=== PATIENT | female | born 1990 | race Caucasian/White ===

== ENCOUNTER 2022-02-08 11:14 | Outpatient (CLI) | payer OTHER, SELFPAY ==
[2022-02-08 12:21] LABS: Strep A DNA Probe* Not Detected (Not Detectd)
== END 2022-02-08 11:15 | disposition home or self-care (01) ==
LOC: NFLDUCREF 11:15
PROVIDERS: Visit Provider Student in an Organized Health Care Education/Training Program
DX: J02.9 Acute pharyngitis, unspecified (principal); Z20.822 Contact with and (suspected) exposure to COVID-19
CPT/HCPCS: 87651

== ENCOUNTER 2022-06-24 11:05 | Outpatient (CLI) | payer OTHER, SELFPAY ==
--- NOTE | 2022-06-24 14:58 | P.LACCB_ITS ---
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 Urban Jaundice: No Reason for Consult Reason for Consult: continued pain with latching after frenotomy Past Experience Past Experience: Yes (nursed her older child about 6 months) Current Frequency of Day Feedings: about every 2 hours Frequency of Night Feedings: every 2.5 - 3 hours Both Breasts: No Suck: strong Latch: wide Length of Time: 10 - 15 minutes Goals: as long as possible Pumping Pumping: Yes (BID) Quantity Pumped: 6 - 15 oz total each time Supplementing EMB Supplement: Yes (baby takes one 3 oz bottle daily ) Formula Supplement: No Baby Elimination Number of Wet Diapers a Day: 6 - 8 times/day Number of BM a Day: 2 - 4 times/day Breast/Nipple Condition Breast Information: WNL Maternal Nipple Condition - Left: Common Nipple Maternal Nipple Condition - Right: Common Nipple Sore Nipples: Yes Onsite Pre-Feed weight: 4.226 kg Post-Feed weight: 4.304 kg Milk Transferred (mL): 78 Assessments/Interventions Assessments/Interventions: Met with mom and this now one month old ex- term AGA baby for consult.? Mom reports baby had a lingual frenectomy on 06/16 and while has improved somewhat, it still hurts in the first 1 - 2 minutes and baby still slips off the breast throughout the feeding; her nipples are very sore.? She states baby is nursing every 2 - 3 hours around the clock.? She usually offers one side and he will nurse for 10 - 15 minutes.? She pumps BID getting 6 - 15 oz total each time.? Baby gets about one 3 oz bottle daily and mom states even with paced feeding he tends to have trouble with the bottle.? Breasts WNL- symmetrical with rounded lower quadrants, intramammary distance is < 1.5 inches.? Nipples are everted and don't flatten or retract on compression. No damage noted but mom does report they were damaged and bleeding before the frenectomy.? Nipples are quite red but are not shiny, scaly, or itchy.? She denies the pain is burning, stabbing, or that it radiates to her back.? Also denies any s/s of vasospasm. Baby has gained 37 grams/day since his last visit on 06/10.? Mom denies any caput/cephalohematoma; states baby does prefer turning his head to the left but has equal ROM when moving his extremities.? Baby has had several appointments with a craniosacral therapist in [place].? Palate is a little high and mom reports this is something the therapist is addressing.? Upper lip is easy to flange and the gums don't chato, but baby does have a suck blister and the dentist told mom baby has an upper lip tie (mom chose not to have this revised).? Baby has a strong suck on a finger and his tongue easily extends past the gum line, but doesn't really cup around the finger.? Good lateral movement with only minimal canoeing.? The release appears to be healing well and mom is d oing the exercises prescribed by the dentist.? No s/s of sheron in baby's mouth. Mom latched baby in the cross cradle position on the left side and immediately reported a painful pinching feeing even though the latch was wide and both lips were flanged.? No improvement when the flipple was suggested to help breast tissue fill in the higher palate.? Baby nursed about 15 minutes on the left side slipping from a deep latch to a shallow one almost constantly.? Mom doesn't have a fast/overwhelming flow, no improvement with breast compression or when mom attempted to support her breast during the feeding.? Mom switched baby to the right side and although he was able to maintain a deep latch a little better on this side, he still slipped down to the nipple frequently and mom had to re- latch him multiple times.? Both nipples were pinched looking when baby came off.? After about a 30 minute session he transferred 78 ml.? He was still fussy so mom gave him about 30 ml of EBM while we watched a video on different tongue exercises she could try at home. Plan: 1. Continue to nurse baby LITO, suggested she offer both sides at each feeding.? She has great technique in latching him, could try breast compression. 2. Continue to pump BID. 3. Continue to supplement prn. 4. Reviewed video from [place] on exercises to strengthen and coordinate the tongue.? Suggested she try these twice/day along with the one exercise from the dentist. 5. Will f/u on 07/01 by phone.? If no improvement could consult NILO Talavera for second opinion or have the upper lip tie revised. 6. Will fax note to Iona Lowe CNM at [facility]. Meds Home Medications and Allergies Home Medications Medication Instructions Recorded Confirmed Type guaifenesin 600 mg tablet, 600 mg PO Q12H PRN 02/08/22 03/02/22 History extended release 12 hr (Mucinex) Allergies Allergy/AdvReac Type Severity Reaction Status Date / Time azithromycin Allergy Intermediate hives Verified 03/02/22 15:37 augmentin Allergy Intermediate Hives Uncoded 03/02/22 15:37
== END 2022-06-24 11:06 | disposition home or self-care (01) ==
PROVIDERS: PCP Nurse Practitioner Family; Visit Provider Obstetrics & Gynecology
DX: Z39.1 Encounter for care and examination of lactating mother (principal)
CPT/HCPCS: 99211

== ENCOUNTER 2023-02-15 20:57 | Emergency (ER) | payer OTHER, SELFPAY ==
[2023-02-15 21:10] VITALS: BP 130/82; PULSE 85; RESP 20; TEMP 36.7; O2SAT 99; BMI 28.1
[2023-02-15] MEDS: BUPIVACAINE 0.5 % 10 ML VIAL INJECTION (22:30)
--- OUTSIDE RECORDS SUMMARY | 2023-02-15 22:41 | XMS_ITS | Patient Health Record ---
Author Name Unknown Organization [facility] [place] Address [address] [place] [address] Care Team Providers Care Guest Relations Receptionist Name Role Phone None, No PCP Primary Care Provider Unavailabl Edith Araya Unavailable [phone] Janey Henny Unavailable [phone] Mojgan Crow Unavailable [phone] Cecy Bustos Unavailable [phone] Shantel Lowe Unavailable [phone] Mirta Fierro Unavailable Nikolas Dumont Unavailable [phone] ALLERGIES No Known Allergies RESULTS Component Value Reference Range Notes STREPTOCOCCUS, GROUP B CULTU RE W/ SENSITIVITY (PCN ALLERGY) Reviewed date:04/24/2022 01:57:13 PM Interpretation: Performing Lab:[facility], [facility] [facility]FN[address] Emil Wick Notes/Report: CULTURE, GROUP B STREP WITH SUSCEPTIBILITY SEE NOTE CULTURE, GROUP B STREP WITH SUSCEPTIBILITY Micro Number: [id number] Test Status: Final Specimen Source: Vaginal/anorectal Specimen Quality: Adequate Result: No group B Streptococcus isolated Note per CDC guidelines optimal recovery is achieved by swabbing both the lower vagina and rectum (through the anal sphincter). Urinalysis, Routine - IH Reviewed date:02/23/2022 01:23:44 PM Interpretation: Performing Lab: Notes/Report: Urine Color yellow Yellow - Paula Appearance clear Clear - Glucose neg Bilirubin neg Ketone neg Specific [place] 1.015 Blood neg pH 8.0 Protein 15 Urobilinogen 0.2 Nitrite neg Leukocytes neg Glucose Bilirubin Ketones Specific [place] Occult Blood pH Protein Urobilinogen Nitrite Leukocytes TSH (IH) Reviewed date:02/26/2022 04:11:13 PM Interpretation: Performing Lab: Notes/Report: TSH3 1.64 0.45 - 5.33 uIU/mL BILE ACIDS, FRACTIONATED AND TOTAL, Reviewed date:03/06/2022 08:34:25 AM Interpretation: Performing Lab:[facility],[address] [address] HealthCA[address] Sandie Contreras MD,PhD,ANDI Notes/Report: 0; 0; 0 CHOLIC ACID 0.6 < OR = 2.8 umol/L DEOXYCHOLIC ACID <0.5 < OR = 2.3 umol/L CHENODEOXYCHOLIC ACID 0.5 < OR = 3.9 umol/L TOTAL BILE ACIDS <1.5 < OR = 8.3 umol/L This test was developed and its analytical performance characteristics have been determined by [email or web address] [facility]. It has not been cleared or approved by FDA. This assay has been validated pursuant to the CLIA regulations and is used for clinical purposes. T4, FREE Reviewed date:02/24/2022 04:07:02 PM Interpretation: Performing Lab:[facility] [address], [place] CarpenterLkmaNP[address] Emil Wick M.D. Notes/Report: 0; 0; 0 T4, FREE 1.1 0.8-1.8 ng/dL RPR (DX) W/REFL TITER AND CO NFIRMATORY TESTING Reviewed date:02/24/2022 04:04:20 PM Interpretation: Performing Lab:[facility] [address], [place] CarpenterKlixSG[address] Emil Wick M.D. Notes/Report: 0; 0; 0 RPR (DX) W/REFL TITER AND CONFIRMATORY TESTING NON-REACTIVE NON-REACTIVE CBC (INCLUDES DIFF/PLT) Reviewed date:02/24/2022 04:04:20 PM Interpretation: Performing Lab:[facility] [address] [address], [place] CarpenterPyjpQF[address] Emil Wick M.D. Notes/Report: 0; 0; 0 WHITE BLOOD CELL COUNT 7.4 3.8-10.8 Thousand/ uL RED BLOOD CELL COUNT 4.06 3.80-5.10 Million/uL HEMOGLOBIN 12.1 11.7-15.5 g/dL HEMATOCRIT 34.7 35.0-45.0 % MCV 85.5 80.0-100.0 fL MCH 29.8 27.0-33.0 pg MCHC 34.9 32.0-36.0 g/dL RDW 12.4 11.0-15.0 % PLATELET COUNT 178 140-400 Thousand/uL MPV 9.1 7.5-12.5 fL ABSOLUTE NEUTROPHILS [phone] cells/uL ABSOLUTE LYMPHOCYTES [phone] cells/uL ABSOLUTE MONOCYTES 348 200-950 cells/uL ABSOLUTE EOSINOPHILS 22 15-500 cells/uL ABSOLUTE BASOPHILS 22 0-200 cells/uL NEUTROPHILS 71.6 LYMPHOCYTES 23.1 MONOCYTES 4.7 EOSINOPHILS 0.3 BASOPHILS 0.3 GLUCOSE, GESTATIONAL SCREEN (50G)-135 CUTOFF Reviewed date:02/24/2022 04:04:20 PM Interpretation: Performing Lab:[email or web address] [id number], [facility] HospitalUjsaST[address] Emil Wick M.D. Notes/Report: 0; 0; 0 GLUCOSE, GESTATIONAL SCREEN (50G)-135 CUTOFF 100 <135 mg/dL COMPREHENSIVE METABOLIC PANE L Reviewed date:02/24/2022 04:04:19 PM Interpretation: Performing Lab:[email or web address] [id number] [employer], [facility] HospitalYvxmKT[address] Emil Wick M.D. Notes/Report: 0; 0; 0 GLUCOSE 103 65-99 mg/dL Fasting reference interval For someone without known diabetes, a glucose value between 100 and 125 mg/dL is consistent with prediabetes and should be confirmed with a follow-up test. UREA NITROGEN (BUN) 8 7-25 mg/dL CREATININE 0.71 0.50-0.97 mg/dL EGFR 117 > OR = 60 mL/min/1.73m2 The eGFR is based on the CKD-EPI 2020 equation. To calculate the new eGFR from a previous Creatinine or Cystatin C result, go to https://www.kidney.org/ professionals/ kdoqi/gfr%5Fcalculator BUN/CREATININE RATIO NOT APPLICABLE 08-27 (calc) SODIUM 136 135-146 mmol/L POTASSIUM 3.9 3.5-5.3 mmol/L CHLORIDE 103 98-110 mmol/L CARBON DIOXIDE 27 20-32 mmol/L CALCIUM 8.6 8.6-10.2 mg/dL PROTEIN, TOTAL 6.3 6.1-8.1 g/dL ALBUMIN 3.5 3.6-5.1 g/dL GLOBULIN 2.8 1.9-3.7 g/dL (calc) ALBUMIN/GLOBULIN RATIO 1.3 1.0-2.5 (calc) BILIRUBIN, TOTAL 0.2 0.2-1.2 mg/dL ALKALINE PHOSPHATASE 105 31-125 U/L AST 18 10-30 U/L ALT 15 6-29 U/L REASON FOR REFERRAL No Information MEDICATIONS Medication SIG (Take, Route, Fr equency, Duration) Notes Start Date End Date Status Active Acyclovir 800 MG 1 tablet Orally Five times a day for 7 days 04/21/2022 Active IMMUNIZATIONS Vaccine Route Administration Date Status Comme nts Flucelvax Quadrivalant - FP IM Intramuscular 01/26/2022 Administered TDAP VACCINE >7 IM IM Intramuscular 03/27/2022 AdministerLisa Ferrer 03/27/2022 02:57:50 PM > SOCIAL HISTORY Tobacco Use: Social History Observation Description Date Details (start date - stop date) Never Smoker NA - NA Sex Assigned At : Social History Observation Description Sex Assigned At Unknown Tobacco Use/Smoking Question Answer Notes Are you a nonsmoker Alcohol Screen (Audit-C) Question Answer Notes Did you have a drink containing alcohol in the p ast year? No Points 0 Interpretation Negative Tobacco use other than smoking: Question Answer Notes Are you an other tobacco user? No PROBLEMS Problem Type ICD Code Onset Dates Problem Status W/U Status Risk SNOMED Code Notes Problem Anxiety (F41.9) Active confirmed 049118 02 Problem care in third trimester (Z34.93) Active confirmed 600667325 VITAL SIGNS Blood pressure diastolic 72 mm Hg 07/14/2022 Height 69 in 07/14/2022 Blood pressure systolic 124 mm Hg 07/14/2022 Weight 215.2 lbs 07/14/2022 BMI 31.78 kg/m2 07/14/2022 Encounters Encounter Location Date Provider Diagnosis [facility] [address] [place] [address] 03/23/2022 Mirta Katz [address] [address] 02/23/2022 Crow Ulrich Encounter for supervision of normal in multigravida in third trimester Z34.83 ; Encounter for routine gynecological examination with Papanicolaou smear of cervix Z01.419 ; Screening for metabolic disorder Z13.228 and Thyroid disorder screen Z13.[address] [address] 02/23/2022 Mirta Katz Encounter for supervision of normal in multigravida in third trimester Z34.[address] [address] 03/11/2022 Nikolas Dumont care in third trimester Z34.[address] [address] 03/27/2022 Shantel Lowe Encounter for immunization Z23 ; History of delivery, currently O34.219 ; care in third trimester Z34.93 and 32 weeks gestation of Z3A.[address] [address] 04/10/2022 Shantel Lowe Encounter for supervision of other normal , third trimester Z34.83 ; History of Z98.891 and 34 weeks gestation of Z3A.[address] [address] 04/21/2022 Shantel Lowe Supervision of other high risk pregnancies, third trimester O09.893 and 36 weeks gestation of Z3A.[address] [address] 04/21/2022 Shantel Lowe 36 weeks gestation o f Z3A.36 ; Supervision of high risk in third trimester O09.93 and History of section, low transverse Z98.[address] [address] 04/21/2022 Shantel Lowe screening for streptococcus B Z36.[address] [address] 05/01/2022 Shantel Lowe Supervision of high risk in third trimester O09.93 ; History of Z98.891 and 37 weeks gestation of Z3A.[address] [address] 05/08/2022 Shantel Lowe Supervision of high risk in third trimester O09.93 ; History of Z98.891 and 38 weeks gestation of Z3A.[address] [address] 05/13/2022 Mirta Katz Encounter for supervision of other normal , third trimester Z34.[address] [address] 05/18/2022 Mirta Katz Supervision of other high risk pregnancies, third trimester O09.893 and 39 weeks gestation of Z3A.[address] [address] 05/19/2022 Shantel Lowe History of Z98.891 ; Supervision of high risk in third trimester O09.93 and 40 weeks gestation of Z3A.[address] [address] 05/21/2022 Cecy Bustos Encounter for supervision of other normal , third trimester Z34.[address] [address] 05/26/2022 Shantel Lowe Supervision of high risk in third trimester O09.93 ; History of Z98.891 and 41 weeks gestation of Z3A.[address] [address] 07/14/2022 Shantel Lowe Encounter for routin e follow-up Z39.2 and Care and examination of lactating mother Z39.[address] [address] 02/20/2022 [facility] [address] [place] [address] 03/[facility]/2022 [facility] [address] [facility] [address] [place] [address] 04/03/2022 [facility] [address] [facility] [address] [place] [address] 04/23/2022 [facility] [address] [place] [address] 06/01/2022 Henny Toth [facility] [address] [place] [address] 06/24/2022 Shantel [facility] [address] [place] [address] 02/27/2022 Mirta Katz ASSESSMENTS Encounter Date Diagnosis Assessment Notes Treatment Notes Treatment Clinical Notes 02/23/2022 Encounter for supervision of normal in multigravida in third trimester (ICD-10 - Z34.83) 03/11/2022 care in third trimester (ICD-10 - Z34.93) 03/27/2022 Encounter for immunization (ICD-10 - Z23) 02/23/2022 Encounter for routine gynecological examination with Papanicolaou smear of cervix (ICD-10 - Z01.419) 02/23/2022 Encounter for supervision of normal in multigravida in third trimester (ICD-10 - Z34.83) 03/27/2022 History of delivery, currently (ICD-10 - O34.219) 04/10/2022 History of (ICD-10 - Z98.891) 04/21/2022 Supervision of other high risk pregnancies, third trimester (ICD-10 - O09.893) 04/21/2022 36 weeks gestation of (ICD-10 - Z3A.36) 04/21/2022 36 weeks gestation of (ICD-10 - Z3A.36) 04/21/2022 Supervision of high risk in third trimester (ICD-10 - O09.93) 04/10/2022 Encounter for supervision of other normal , third trimester (ICD-10 - Z34.83) 05/01/2022 Supervision of high risk in third trimester (ICD-10 - O09.93) 05/01/2022 History of (ICD-10 - Z98.891) 05/08/2022 Supervision of high risk in third trimester (ICD-10 - O09.93) 05/08/2022 History of (ICD-10 - Z98.891) 05/13/2022 Encounter for supervision of other normal , third trimester (ICD-10 - Z34.83) 05/18/2022 Supervision of other high risk pregnancies, third trimester (ICD-10 - O09.893) 05/18/2022 39 weeks gestation of (ICD-10 - Z3A.39) 05/19/2022 Supervision of high risk in third trimester (ICD-10 - O09.93) 05/19/2022 History of (ICD-10 - Z98.891) 05/21/2022 Encounter for supervision of other normal , third trimester (ICD-10 - Z34.83) 05/26/2022 Supervision of high risk in third trimester (ICD-10 - O09.93) 05/26/2022 History of (ICD-10 - Z98.891) 07/14/2022 Encounter for routine follow-up (ICD-10 - Z39.2) 07/14/2022 Care and examination of lactating mother (ICD-10 - Z39.1) 05/26/2022 41 weeks gestation of (ICD-10 - Z3A.41) 05/19/2022 40 weeks gestation of (ICD-10 - Z3A.40) 05/08/2022 38 weeks gestation of (ICD-10 - Z3A.38) 04/10/2022 34 weeks gestation of (ICD-10 - Z3A.34) 04/21/2022 History of section, low transverse (ICD-10 - Z98.891) 04/21/2022 screening for streptococcus B (ICD-10 - Z36.85) 05/01/2022 37 weeks gestation of (ICD-10 - Z3A.37) 03/27/2022 care in third trimester (ICD-10 - Z34.93) 02/23/2022 Screening for metabolic disorder (ICD-10 - Z13.228) 02/23/2022 Thyroid disorder screen (ICD-10 - Z13.29) 03/27/2022 32 weeks gestation of (ICD-10 - Z3A.32) 07/14/2022 Other Pap and HPV cotesting up to date at our clinic GI consult if recurrent blood in stools. Instructed to increase fiber, hydration, and manage any possible constipation in the interim. Encouraged use of high quality lubricant when returning to intercourse Discussed spacing and all options including R/B/A for control methods RTC in 1 year for annual exam PLAN OF TREATMENT Pending Test Test Name Order Date Panorama Test 10/23/2021 Insurance Providers Payer Name Payer Address Payer Phone Subscriber Number Group Number Insured Name Patient Relationship to Insured Coverage Start Date Coverage End Date [employer] (Ins. Bill) [address] [address] [place], [place] [phone] [id number] Brigitte Turner Self - patient is the insured 2 MEDICAL (GENERAL) HISTORY Medical History History ICD Code Anxiety and depression Asthma-childhood Chicken Pox Surgical History Surgery Date(Month/Year)
--- NOTE | 2023-02-15 22:56 | ED_ITS ---
HPI - Skin/Abscess/Foreign Bdy General Date Seen: 02/15/23 Chief complaint: Skin/Abscess/Foreign Body Stated complaint: Left Nail finger Time Seen by Provider: 02/15/23 21:47 Source: patient Mode of arrival: ambulatory Limitations: no limitations History of Present Illness HPI narrative: Patient is a 32-year-old female with no pertinent medical problems presenting to emergency department for a carpentry nail from a nail gun that appears to her left index finger through the nail. She says she is working on a project when she accidentally appears to her finger with a nail gun. No other concerns at this time. Her last tetanus vaccine was 2018. Related Data Home Medications Medication Instructions Recorded Confirmed guaifenesin 600 mg tablet, 600 mg PO Q12H PRN 02/08/22 03/02/22 extended release 12 hr (Mucinex) Previous Rx's Medication Instructions Recorded albuterol sulfate 90 mcg/actuation 1 inh inhalation Q4-6H PRN chough 02/15/22 breath activated powder inhaler #1 ea amoxicillin 875 mg-potassium 1 tab PO BID #7 tabs 02/15/22 clavulanate 125 mg tablet azithromycin 250 mg tablet See Rx Instructions PO .COMPLEX #6 02/15/22 tabs prednisone 20 mg tablet 20 mg PO BID #10 tabs 03/02/22 Allergies Allergy/AdvReac Type Severity Reaction Status Date / Time azithromycin Allergy Intermediate hives Verified 02/15/23 21:12 augmentin Allergy Intermediate Hives Uncoded 03/02/22 15:37 Review of Systems Narrative: Negative unless stated in HPI PFSH PFSH Medical History Hives ?L50.9 - Urticaria, unspecified (ICD-10) Cough in adult ?R05.9 - Cough, unspecified (ICD-10) Social History Smoking Status: Never smoker Second hand tobacco smoke exposure: No How often do you have a drink containing alcohol: never AUDIT-C Alcohol total score: 0 Non-prescribed substance use: denies use Exam Narrative: Exam Narrative: Const: Well-nourished, Well-developed, in mild distress Eyes: PERRL, no conjunctival injection, and symmetrical lids HENT: Atraumatic external nose and ears. Moist mucous membranes. MSK:Extremities w/o deformity, Normal Active ROM, dark injury nail puncture through and through her left distal finger going in through the nail and out through the pad Skin: Warm, Dry. No rashes or lesions. Neuro: Normal Muscle tone, No focal neurological deficits. Psych: Awake, Alert, & Oriented x3. Appropriate mood and affect. Const: Vital Signs, click to edit/add: Vital Signs - 24 hr 02/15/23 21:10 Temperature 98.0 F Pulse Rate [Right Pulse Oximeter] 85 Respiratory Rate 20 Blood Pressure [Ri ght Upper Arm] 130/82 Pulse Oximetry 99 Oxygen Delivery Me thod Room Air Course Vital Signs Vital signs: Initial Vital Signs Temperature 98.0 F 02/15/23 21:10 Temperature Source Temporal Artery Scan 02/15/23 21:10 Pulse Rate 85 02/15/23 21:10 Respiratory Rate 20 02/15/23 21:10 Blood Pressure 130/82 02/15/23 21:10 Blood Pressure Mean 98 02/15/23 21:10 Blood Pressure Position Sitting 02/15/23 21:10 Pulse Oximetry 99 02/15/23 21:10 Oxygen Delivery Method Room Air 02/15/23 21:10 Vital Signs Temperature 98.0 F 02/15/23 21:10 Pulse Rate 85 02/15/23 21:10 Respiratory Rate 20 02/15/23 21:10 Blood Pressure 130/82 02/15/23 21:10 Pulse Oximetry 99 02/15/23 21:10 Oxygen Delivery Method Room Air 02/15/23 21:10 Temperature 98.0 F 02/15/23 21:10 Pulse Rate 85 02/15/23 21:10 Respiratory Rate 20 02/15/23 21:10 Blood Pressure 130/82 02/15/23 21:10 Pulse Oximetry 99 02/15/23 21:10 Oxygen Delivery Method Room Air 02/15/23 21:10 Medications Administered Medications: Discontinued Medications Generic Name Dose Route Start Last Admin Trade Name Freq PRN Reason Stop Dose Admin Bupivacaine HCl 10 ml 02/15/23 22:44 02/15/23 22:30 Bupivacaine 0.5 % 10 Ml Vial INJECTION 02/15/23 22:45 10 ml ONCE ONE Administration MDM - Skin/Abscess/Foreign Bdy MDM Narrative Medical decision making narrative: Patient presents emergency department after injuring herself with a nail gun. The nail went through her fingernail and out the bottom of the finger. This happened shortly prior to arrival. Her tetanus is up-to-date. She is otherwise doing well at this time. Lidocaine and bupivacaine were used for digital nerve block and the carpentry nail was successfully removed from his finger. An x-ray was ordered to look for any fractures of the distal phalanx. At this time the the nail was relatively small that punctured through her fingernail and I do not believe is necessary to remove the nail to look for any signs of large nail bed laceration. There was a puncture wound unlikely only a very small wound my with not be amenable to suturing. X-ray showed no acute fractures. Concerning it was a puncture wound we will put her on prophylactic antibiotics. She is agreeable to this plan. Imaging Data Finger x-ray: Radiologist's impression: No acute fractures or dislocation. No radiopaque foreign bodies. Dictated by Jame Rondon MD @ 02/15/2023 11:34:30 PM Discharge Plan Discharge Clinical Impression: Foreign body (FB) in soft tissue Patient Disposition: Home, Self-Care Condition: Stable Instructions: Soft Tissue Foreign Body (ED) Additional Instructions: If you develop signs of worsening infection of the finger return to the emergency department immediately. Take that prophylactic antibiotics as directed. You can pick them up through [facility] Prescriptions: No Action guaifenesin [Mucinex] 600 mg tablet extended release 12hr 600 mg PO Q12H PRN albuterol sulfate 90 mcg/actuation aerosol powdr breath activated 1 inh inhalation Q4-6H PRN (Reason: chough) Qty: 1 0RF amoxicillin-pot clavulanate 875-125 mg tablet 1 tab PO BID Qty: 7 0RF azithromycin 250 mg tablet See Rx Instructions PO .COMPLEX Qty: 6 0RF Rx Instructions: For 250 mg dose pack: take 500 mg today (day 1), then 250 mg for 4 days (days 2-5) PO prednisone 20 mg tablet 20 mg PO BID Qty: 10 0RF Follow Up/Referrals: Sarah Abraham, [employer], [employer] [Primary Care Provider] - [facility]one [facility] Info Inst[facility]
--- NOTE | 2023-02-15 23:04 | CRLHL7_ITS ---
For Patients: As a result of the Cures Act, medical imaging exams and procedure reports are released immediately into your electronic medical record. You may view this report before your referring provider. If you have questions, please contact your health care provider. INDICATION: Trauma. TECHNIQUE: Left hand, 2nd digit radiographs, 3 views. COMPARISON: None. FINDINGS: There is mild soft tissue irregularity involving the volar aspect of the distal portion of the 2nd digit of the left hand, likely representing a small laceration. No acute fractures or dislocation. The joint spaces are preserved. No radiopaque foreign bodies. IMPRESSION: No acute fractures or dislocation. No radiopaque foreign bodies. Dictated by Jame Rondon MD @ 02/15/2023 11:34:30 PM (Electronically Signed)
[2023-02-15 23:43] VITALS: BP 125/74; PULSE 84; RESP 20; TEMP 36.7; O2SAT 99
[2023-02-15 23:44] VITALS: BP 125/74; PULSE 84; RESP 20; TEMP 36.7
== END 2023-02-15 23:45 | disposition home or self-care (01) ==
PROVIDERS: Emergency Provider Student in an Organized Health Care Education/Training Program; PCP Nurse Practitioner Family
DX: S61.341A Puncture wound with foreign body of left index finger with damage to nail, initial encounter (principal); W29.4XXA Contact with nail gun, initial encounter
CPT/HCPCS: 10120; 73140; 99282; 99283; S0020